=== PATIENT | male | born 1955 | race African-American/Black ===

== ENCOUNTER 2016-08-06 09:20 | Inpatient (IN) | payer MEDICARE ==
[2016-08-06 10:24] VITALS: BP 139/91
--- NOTE | 2016-08-06 12:54 | History & Physical ---
IDENTIFYING INFORMATION: The patient is a 60-year-old male. CHIEF COMPLAINT: The patient was admitted on a hold for gait disability and danger to self. HISTORY OF PRESENT ILLNESS: The patient was sent from [facility]. He is homeless. He was not on any medication. He presented very disorganized in thought and speech. He stated he wanted to see a psychiatrist. He said he wanted to ____ to stop. He was paranoid. He believes that they are after me. He had suicidal ideation. He said I want to . He is delusional, expansive, having auditory and visual hallucinations, unable to contract for safety. When I talked to the patient, he was a poor historian. He thought he was 60 years of age. When asked about the reason for him to be here, he was unable to tell me. He said he went into [facility]; however, he was unable to elaborate. He reports that he sleeps well, eats well. He has been homeless, but he believes he was living in a board and care. He was unable to tell me what medication he was on. He was a very poor historian. PAST PSYCHIATRIC HISTORY: He has been treated by psychiatrist before. He has been hospitalized before. Unable to give me more details. He reports he was diagnosed with schizophrenia. MEDICAL HISTORY: Deferred to the medical doctor. ALLERGIES: He has no known drug allergies. He reports he is not sure what medications he is on. FAMILY AND SOCIAL HISTORY: The patient states he has a common-law since 1990. When asked about his children, he said he has 3, 4, 5, 6 or 7 children, not sure. He said he has college education. 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 He denies substance abuse problem. Later he changed his mind and says he may have used some, but he was unable to elaborate. MENTAL STATUS EXAMINATION: The patient is appropriately dressed, not very groomed. He looked disheveled. He was in hospital gown. He was rambling, unable to participate in a meaningful conversation and give valid information. He was, however, able to tell me the date, where he is, but he is unable to tell me his age, how many children he has. He apparently was reporting auditory and visual hallucinations that he wanted to and wanted to harm himself. He was paranoid. He feels that they are after him. He seems to have average intelligence. His long-term memory is poor, cannot remember his age. Short term memory is poor. He is not sure of the events that led to him coming here because of his psychosis. He has been responding to internal stimuli. His insight about his illness is poor. Judgment is poor with his behavior. IMPRESSION: AXIS I: Chronic paranoid schizophrenia with acute exacerbation. MEDICAL DIAGNOSIS: Deferred to Dr. Agarwal. His assets, he is accepting treatment, negative poor coping skills. INITIAL TREATMENT PLAN: The patient will be started on Risperdal. We will do group therapy, milieu therapy, individual therapy. ESTIMATED LENGTH OF STAY: 3-7 days. DISCHARGE CRITERIA: Decreasing psychosis, agitation, no longer suicidal or paranoid. After discharge, outpatient treatment. [facility]# [id number]
--- NOTE | 2016-08-07 03:37 | Consultation ---
REFERRING PHYSICIAN: Dr. Rivera. REASON FOR CONSULTATION: Medical management. HISTORY OF PRESENT ILLNESS: This is a 60-year-old -[place] male with history of schizoaffective disorder, bipolar disorder, who was admitted with psych decompensation. The patient apparently showed up at a local ER with disorganized thoughts and speech with grandiose delusions and apparently he was admitting to hearing voices. The patient has been admitted to [facility] for further management and care. He is cooperative, but very confused and very tangential in his speech. Per records, there is a medical history significant for anemia, nicotine dependence, and a past UTI. PAST MEDICAL HISTORY: As noted above. He denies any medical history when I asked. PAST SURGICAL HISTORY: He had a nostril surgery in his early 20s. FAMILY HISTORY: He states that his mom had pancreatic cancer. SOCIAL HISTORY: He admits to tobacco, denies any ETOH. ALLERGIES: NKDA. OUTPATIENT MEDICATIONS: Depakote 250 b.i.d., Seroquel 150 t.i.d., and trazodone 50 at bedtime. REVIEW OF SYSTEMS: CONSTITUTIONAL: A great review of systems was unable to be done given the patient's condition, but he denies any recent fever, chills, or any recent ailments. CARDIOVASCULAR: No chest pain, palpitations. PULMONARY: Denies any cough or phlegm production. GASTROINTESTINAL: No bowel habit changes. GENITOURINARY: No bladder habit changes. PHYSICAL EXAMINATION: VITAL SIGNS: BP 139/91, pulse 78, respirations 20. He is afebrile. GENERAL: Well developed, well nourished, not in acute distress. HEAD AND NECK: Normocephalic, atraumatic. CARDIAC: Regular rate and rhythm without any murmurs. LUNGS: Decreased at the bases, but overall clear auscultation bilaterally. ABDOMEN: Soft, supple, nontender, nondistended, normoactive bowel sounds. EXTREMITIES: No edema in lower extremities. LABORATORY DATA: There were no labs available at this time. IMPRESSION: 1. Acute psych exacerbation. 2. History of schizoaffective disorder. 3. History of anemia. 4. History of nicotine dependence. PLAN: The patient has been admitted to the [facility] for further management and care. I will ask for basic labs including CBC, CMP, mag, TSH, UA, and lipid panel. I will follow the patient on a daily basis. JOB# [id number]
--- NOTE | 2016-08-07 08:13 | Diagnostic Imaging Report ---
Portable chest x-ray History: Cough Allowing for portable technique the heart size is normal. No focal pulmonary parenchymal processes. No hilar or mediastinal abnormalities. Impression: No acute abnormalities.
[2016-08-07 08:21] LABS: % BASOPHILS 2.3 % (0.0-2.0); % EOSINOPHILS 2.6 % (0.0-5.0); % MONOCYTES 4.9 % (2.0-10.0); % NEUTROPHILS 64.2 % (40.0-80.0); HEMATOCRIT 39.9 % (39.0-49.0); HEMOGLOBIN 13.2 gm/dL (13.2-17.3); MEAN CELL VOLUME 84.8 fl (80-99); MEAN CORPUSCULAR HEMOGLOBIN 28.1 pg (26.0-30.0); MEAN CORPUSCULAR HGB CONC 33.1 pg (28.0-36.0); MEAN PLATELET VOLUME 9.7 fl; NEUTROPHILE ABSOLUTE 5.9 Th/cmm (1.8-8.0); PLATELET COUNT 299 Th/cmm (150-400); WHITE BLOOD COUNT 9.1 Th/cmm (4.8-10.8)
[2016-08-07 08:35] LABS: ANION GAP 4.8 (7.0-16.0); BUN - UREA NITROGEN 21 mg/dL (7-25); BUN/CREATININE RATIO 23.3; CALCIUM SERUM 9.6 mg/dL (8.6-10.3); CARBON DIOXIDE 28.9 mEq/L (21.0-31.0); CHLORIDE 106 mEq/L (98-107); CREATININE - SERUM 0.9 mg/dL (0.7-1.3); GLUCOSE 96 mg/dL (70-105); POTASSIUM SERUM 4.7 mEq/L (3.5-5.1); SODIUM SERUM 135 mEq/L (136-145)
[2016-08-07 08:36] LABS: CHOLESTEROL 144 mg/dL (<200); TRIGLYCERIDES 67 mg/dL (<150)
[2016-08-07] MEDS ORDERED: Haloperidol Lactate 5 mg/mL 1mL Vial IM STA (12:20)
[2016-08-07] MEDS ORDERED: Haloperidol Lactate 5 mg/mL 1mL Vial ONE (12:29)
--- NOTE | 2016-08-07 22:07 | Progress Notes ---
Covering for Dr. Rivera. Case was discussed with staff of the patient. The patient believes some staff is trying to harm him and some people are trying to hurt him. He continues to look disheveled, disorganized, and internally preoccupied. I did initiate him on Risperdal 0.5 mg twice a day with benztropine 0.5 mg twice a day as needed with no side effects, no sedation, and no nausea. Not sure if he needs placement; however, we will have the staff look into it and so far, we will continue to work with the patient in group therapy, milieu therapy, and adjust the medication as needed. JOB# [id number]
--- NOTE | 2016-08-09 06:06 | Progress Notes ---
Case was discussed with staff of the patient, reviewed records. The patient continues to be psychotic, delusional. Continues to be unable to participate in a meaningful conversation, cannot formulate a safe plan for self-care. He is still looking disheveled, disorganized, and internally preoccupied. He is homeless, unpredictable, impulsive. He refused to take the medication that I prescribed to him and he has been on Risperdal 0.5 mg twice a day, so when I asked him about the reason why he does not take it, he said he does not like to take it, it makes him feel mean and thus he would take any other medication and I asked him if there was any other medication that he knows ____ he was unable to tell me, so I will be discontinuing Risperdal and I will be adding Zyprexa 5 mg at bedtime. The patient continues to have poor insight. Unable to make safe plan for self-care and discussed side effects with the medication. We will continue to work with the patient in group therapy, milieu therapy, and adjust the medication as needed. JOB# [id number]
[2016-08-09] MEDS: OLANZapine 10 mg Oral Disintegrating Tab PO SCH (21:00)
--- NOTE | 2016-08-10 05:29 | Progress Notes ---
SUBJECTIVE: Chart reviewed and the patient interviewed. Also discussed the patient's condition with the staff and reviewed records and labs. The patient is still actively hallucinating and is still actively responding to stimuli. The patient also is still talking to himself and mumbling with words difficult to understand. The patient also is still threatening others and still has disorganized thoughts. The patient also is still disheveled and personal hygiene is still poor. Also, still needs redirections, but he gets agitated when staff tries to redirect him. On the other hand, the patient continued to comply with taking his medications with no side effects of medications. The patient also still has dangerous situation and gets violent easily and has been slamming doors. ASSESSMENT: The patient is still psychotic and considered to be gravely disabled. TREATMENT PLAN: We will continue monitoring his behavior and his condition closely. Also, we will increase Zyprexa to 5 mg in the morning and 10 mg at bedtime and we will continue to follow up his condition closely. JOB# [id number]
[2016-08-10] MEDS: OLANZapine 10 mg Oral Disintegrating Tab PO SCH (20:31)
--- NOTE | 2016-08-11 05:51 | Progress Notes ---
SUBJECTIVE: Chart reviewed and the patient interviewed. Also discussed the patient's condition with the staff and reviewed records and labs. The patient is still actively hallucinating and is still actively responding to stimuli. The patient also continued to be angry and still threatening peers and others and he gets aggressive when staff tries to redirect her. The patient also is still slamming doors and he is still demanding. Also, during interview patient had disorganized thoughts. ASSESSMENT: The patient is still psychotic and can be dangerous to others. TREATMENT PLAN: Zyprexa was increased yesterday with no side effects. We will continue same dose. Also, we will continue working on his poor impulse control and we will continue to follow up. JOB# [id number]
[2016-08-11] MEDS: OLANZapine 10 mg Oral Disintegrating Tab PO SCH (20:43)
--- NOTE | 2016-08-12 01:03 | Progress Notes ---
SUBJECTIVE: Chart reviewed and the patient interviewed. Also, discussed the patient's condition with staff and reviewed records and labs. The patient is still extremely angry and agitated, and he is still actively responding to stimuli and talking to himself. The patient also is still suspicious and is still paranoid. The patient also still has difficulty with redirections and gets agitated when staff tries to help him with redirecting him. Also, during interview, the patient is disheveled and he is talking to himself. ASSESSMENT: The patient is still psychotic and agitated and can be dangerous to others. TREATMENT PLAN: We will continue monitoring his behavior and his condition closely. Also, continue to work on his irritability and his agitation. Also, Zyprexa was increased to 5 mg in the morning and continue monitoring and adjusting the dose. JOB# [id number]
[2016-08-12] MEDS: OLANZapine 10 mg Oral Disintegrating Tab PO SCH (20:33)
[2016-08-12] MEDS ORDERED: Magnesium Hydroxide (MOM) 30 mL UDC PO PRN (21:16)
--- NOTE | 2016-08-13 04:17 | Progress Notes ---
Covering for Dr. Rivera. SUBJECTIVE: Nursing staff reported the patient presents overnight labile, euphoric. Today on bapm-av-lakh evaluation, the patient presents very disorganized and delusional, unable to engage in linear conversation. MENTAL STATUS EXAMINATION: Disorganized, paranoid, and delusional. ASSESSMENT AND PLAN: The patient is a 60-year-old male with chronic paranoid type, unable to formulate a safe plan outside in a structured environment. We will continue with primary psychiatrist's treatment plan and goals, which include Zyprexa 5 in the morning and 10 at nighttime. JOB# [id number]
[2016-08-13] MEDS: Multivitamin Tab PO SCH (08:40)
[2016-08-13] MEDS: OLANZapine 10 mg Oral Disintegrating Tab PO SCH (20:44)
--- NOTE | 2016-08-14 02:55 | Progress Notes ---
SUBJECTIVE: The patient is seen. Chart reviewed. Discussed with staff. The patient with history of schizophrenia, disorganized, psychotic. The patient is rambling, making nonsensical statements. When I asked him why he is here, he states "I went to [address], I went to get a hotdog; I was a toddler." The patient states he is here because he is waiting for board and care, flight of ideas, pressured speech, but on a positive note he seems calm at this time. ASSESSMENT: The patient remains disorganized, paranoid, delusional, bizarre, nonsensical statements. PLAN: The patient is currently gravely disabled, cannot take care of his basic needs. We will continue to monitor closely and adjust medications. JOB# [id number]
[2016-08-14] MEDS: Multivitamin Tab PO SCH (09:54)
[2016-08-14] MEDS: OLANZapine 10 mg Oral Disintegrating Tab PO SCH (20:34)
--- NOTE | 2016-08-15 02:44 | Progress Notes ---
SUBJECTIVE: Chart reviewed and the patient interviewed. Also, discussed the patient's condition with the staff and reviewed records and labs. The patient is hyperactive and he is still agitated. The patient is also still slamming doors and he is still in angry and in irritable mood. The patient is also still threatening peers and staff and has difficulty following directions. Also, during the interview, the patient is hyper-talkative and he is severely anxious and angry. Also, noted to be talking to himself. On the other hand, the patient is compliant with taking his medications with no side effects of medications. ASSESSMENT: The patient is still psychotic. TREATMENT PLAN: We will continue to monitor his behavior and his condition closely. Also, continue adjusting psychotropic medications, and we will continue to follow up closely. JOB# [id number]
[2016-08-15] MEDS: Multivitamin Tab PO SCH (09:07)
[2016-08-15] MEDS ORDERED: OLANZapine 10 mg Oral Disintegrating Tab PO SCH (10:58)
[2016-08-15] MEDS: OLANZapine ODT 10 MG, OLANZapine ODT 5 MG PO SCH (20:18)
[2016-08-15] MEDS ORDERED: OLANZapine ODT 10 MG, OLANZapine ODT 5 MG PO SCH (21:00)
--- NOTE | 2016-08-16 04:39 | Progress Notes ---
SUBJECTIVE: Chart reviewed and the patient interviewed. Also discussed the patient's condition with the staff and reviewed records and labs. The patient is still actively responding to the stimuli and he is still easily agitated and in angry and in irritable mood. The patient also is still suspicious and paranoid. The patient also is still actively responding to the stimuli and talking to self. On the other hand, the patient is compliant with taking his medications with no side effects of medications. ASSESSMENT: The patient is still psychotic. TREATMENT PLAN: We will increase Zyprexa to 5 mg in the morning and 3 mg at bedtime. Also, continue to work on his irritability and anger and mood swings and poor impulse control. Also, work on discharge plans. JOB# [id number]
[2016-08-16] MEDS: Multivitamin Tab PO SCH (09:03)
[2016-08-16] MEDS: OLANZapine ODT 10 MG, OLANZapine ODT 5 MG PO SCH (21:13)
--- NOTE | 2016-08-17 02:34 | Progress Notes ---
SUBJECTIVE: Chart reviewed and the patient interviewed. Also discussed the patient's condition with the staff and reviewed records and labs. The patient continued to be extremely agitated and he is still in angry and in irritable mood. The patient was talking to somebody on the phone and then he slams phones and he gets agitated and angry with the nursing staff and started to threaten them when they were trying to redirect him. The patient also still has difficulty following directions and he is still restless. He also is still in angry mood and he is still unable to carry on ____ conversation. Otherwise, the patient is compliant with taking his medications. During interview, the patient is preoccupied and he is actively responding to the stimuli. Also, personal hygiene is still poor. Also thought processes are circumstantial and tangential with occasional flight of ideas. ASSESSMENT: The patient is still agitated and psychotic. TREATMENT PLAN: The patient continues to take Zyprexa in a total dose of 20 mg everyday, which is the maximum recommended dose. We will add Klonopin in a dose of 1 mg twice a day, hopefully to help with his agitation and irritability. Also, we will continue to work on his anger and his irritable mood and poor impulse control and we will continue to follow up. JOB# [id number]
[2016-08-17] MEDS: Multivitamin Tab PO SCH (08:42)
[2016-08-17] MEDS: OLANZapine ODT 10 MG, OLANZapine ODT 5 MG PO SCH (20:28)
--- NOTE | 2016-08-18 05:22 | Progress Notes ---
SUBJECTIVE: Chart reviewed and the patient interviewed. Also, discussed the patient's condition with the staff and reviewed records and labs. The patient continued to be extremely irritable and he is still easily agitated. The patient also is still pacing up and down the unit. The patient also is still intrusive to others. Also, during interview, the patient is hyperverbal and hypertalkative and disheveled. Otherwise, the patient is compliant with taking his medications and adding ____ help him to be less anxious and less irritable. ASSESSMENT: The patient is still psychotic and agitated. TREATMENT PLAN: We will continue monitoring his behavior and his condition closely. Also, we will continue to work on his irritability and his agitation and we will continue to follow up. Also, discussed with field nurse case managerrecruiter manager issue. JOB# [id number]
[2016-08-18] MEDS: Multivitamin Tab PO SCH (08:55)
[2016-08-18] MEDS: OLANZapine 10 mg Oral Disintegrating Tab PO SCH (20:34)
--- NOTE | 2016-08-19 06:57 | Progress Notes ---
SUBJECTIVE: Chart reviewed and the patient interviewed. Also, I discussed the patient's condition with the staff and reviewed records and labs. The patient continued to be intrusive and is still acting bizarre. The patient continued to shake my hand and to try to help me and hold me ____ tell him to stop, but the patient is restless and he is still psychotic. The patient also is still restless. Although, the patient ____ and anxiety level is still high. Also, his thought processes are circumstantial and tangential with flight of ideas. ASSESSMENT: The patient is still manic and psychotic. TREATMENT PLAN: We will continue monitoring his behavior and his condition closely. We will continue working on his irritability and anxiety and we will continue to follow up. JOB# [id number]
[2016-08-19] MEDS: Multivitamin Tab PO SCH (08:43)
[2016-08-19] MEDS: OLANZapine 10 mg Oral Disintegrating Tab PO SCH (20:38)
[2016-08-19] MEDS: Maalox 30 mL Cup PO PRN (21:02)
--- NOTE | 2016-08-20 02:15 | Progress Notes ---
SUBJECTIVE: The patient was seen, chart reviewed, and discussed with staff. The patient presented from [facility], [facility], stating that he wanted to . He is paranoid, delusional, and expansive. On [id number], the patient remains symptomatic, still paranoid, stating that he is going to go back to house. The patient remains irritable, easily agitated at times, pacing, intrusive, hyperverbal, pressured, saying things that really do not make sense. The patient noted to be taking his medications. No side effects. ASSESSMENT: The patient remains psychotic, grandiose, paranoid, easily agitated, irritable, and yelling at times. PLAN: We will continue to monitor his behaviors. Monitor closely for any irritability. Continue to manage medications to target his symptoms. JOB# [id number]
[2016-08-20] MEDS: Multivitamin Tab PO SCH (09:04)
[2016-08-20] MEDS: OLANZapine 10 mg Oral Disintegrating Tab PO SCH (20:39)
[2016-08-20] MEDS: Maalox 30 mL Cup PO PRN (20:53)
--- NOTE | 2016-08-20 23:32 | Progress Notes ---
SUBJECTIVE: The patient is seen, chart reviewed, discussed with staff. The patient is presenting from [facility], [facility], stating he want to , paranoid, delusional, ____ on [id number], the patient remains symptomatic, still paranoid, stating that he is going to go back to his house, irritable, easily agitated at times, still pressured, he is noted to be taking his medications, no side effects. ASSESSMENT: The patient remains psychotic, grandiose, still easily agitated, yelling at times, not safe for discharge. PLAN: Continue to monitor closely for any behavioral disturbances, no changes in behavior, continue to manage medications to target symptoms. The patient is to follow up with Dr. Rivera in the morning. JOB# [id number]
[2016-08-21] MEDS: Multivitamin Tab PO SCH (08:44)
[2016-08-21] MEDS: Maalox 30 mL Cup PO PRN (08:48)
[2016-08-21] MEDS: OLANZapine 10 mg Oral Disintegrating Tab PO SCH (20:31)
--- NOTE | 2016-08-21 22:28 | Progress Notes ---
DATE: 08/21/[address] Rivera. Case was discussed with staff of the patient, reviewed records. The patient continues to isolate himself. Continues to refuse medication. Continues to have poor insight about the whole situation. Unable to participate in a meaningful conversation or take care of himself. However, per the staff, probably maybe this is his basic level of functioning. No side effects with the medication, no sedation, no nausea. Recently, Dr. Rivera increased his olanzapine to 20 mg at bedtime. He takes 5 mg in the morning. He continues to be rambling and hyperverbal, continues to look disheveled, at times appears to be responding to internal stimuli, being increased olanzapine to 10 mg in the morning, continue the 20 mg at bedtime, and so far, no side effects, no sedation, no nausea, and no extrapyramidal symptoms. We will continue to work with the patient in group therapy, milieu therapy, and adjust medication as needed. JOB# [id number]
[2016-08-22] MEDS: Multivitamin Tab PO SCH (10:10)
[2016-08-22] MEDS: OLANZapine 10 mg Oral Disintegrating Tab PO SCH (20:30)
--- NOTE | 2016-08-22 23:30 | Progress Notes ---
DATE: 08/22/2016 Case was discussed with staff of the patient, reviewed records. The patient continues to be hyperverbal. He continues to look disheveled, internally preoccupied. Continues to have poor insight. Unable to make safe plan for his self-care. Sleeping well, eating well. No side effects with the medication, no sedation, no nausea, no extrapyramidal symptoms. I did increase his Zyprexa dose yesterday to 10 mg in the morning, 20 mg at bedtime and we will continue the patient in group therapy, milieu therapy, adjust the medication as needed. JOB# [id number]
[2016-08-23] MEDS: Multivitamin Tab PO SCH (10:13)
[2016-08-23] MEDS: OLANZapine 10 mg Oral Disintegrating Tab PO SCH (20:41)
--- NOTE | 2016-08-24 02:07 | Progress Notes ---
DATE: 08/23/2016 SUBJECTIVE: Case discussed with staff of the patient. The patient seems to be psychotic, rambling, hyperverbal. Continues to be unpredictable, impulsive, having poor insight, unable to make safe plan for self-care and currently preoccupied. He is compliant with the medication with no side effects, no sedation, no nausea and suspicious, rambling and is hard to understand. PLAN: I did increase his olanzapine on the 10th to 10 mg in the morning, needing more time to adjust and we will continue to work with the patient in group therapy, milieu therapy, adjust the medication as needed. JOB# [id number]
[2016-08-24] MEDS: Multivitamin Tab PO SCH (09:42)
[2016-08-24] MEDS: Maalox 30 mL Cup PO PRN (20:34)
[2016-08-24] MEDS: OLANZapine 10 mg Oral Disintegrating Tab PO SCH (20:34)
--- NOTE | 2016-08-25 01:57 | Progress Notes ---
DATE: 08/24/[address] Rivera. Case was discussed with staff of the patient, reviewed records. The patient continues to be unpredictable, continues to be rambling at times; however, he is easier to redirect. He is sleeping better and eating better. No side effects with the medication, no sedation, no nausea, and no extrapyramidal symptoms. His medication was adjusted Abilify, and we will continue to work with the patient in group therapy, milieu therapy, and adjust the medication as needed. JOB# [id number]
[2016-08-25] MEDS: Multivitamin Tab PO SCH (10:23)
[2016-08-25] MEDS: OLANZapine 10 mg Oral Disintegrating Tab PO SCH (20:51)
--- NOTE | 2016-08-26 05:10 | Progress Notes ---
DATE: 08/25/2016 Case was discussed with staff of the patient, reviewed records. The patient continues to be unpredictable, impulsive, needing redirection. Continues to have poor insight. He is paranoid. He believes that we are holding him in penitentiary here and that is illegal. He continues to have poor insight. He is intrusive and loud. He has been compliant with the medication with no side effects, no sedation, and no nausea. I will be introducing Depakote to his medication because of his agitation, acting out behavior, and paranoia. Discussed side effects and we will start him on Depakote 250 mg twice a day and no side effects with the medication, no sedation, and no nausea. He is currently on maximum dose of Zyprexa. I will continue to work with the patient in group therapy, milieu therapy, and adjust the medication .. JOB# [id number]
[2016-08-26] MEDS: Multivitamin Tab PO SCH (08:17)
[2016-08-26] MEDS: Magnesium Hydroxide (MOM) 30 mL UDC PO PRN (16:46)
[2016-08-26] MEDS: OLANZapine 10 mg Oral Disintegrating Tab PO SCH (20:31)
--- NOTE | 2016-08-26 23:52 | Progress Notes ---
DATE: 08/26/2016 Case discussed with staff of the patient. The patient continues to be loud, irritable, continues to have poor insight, unpredictable, impulsive, needing redirection, looking disheveled and paranoid. He is compliant with the medication with no side effects, no sedation and no nausea. I did initiate him on Depakote yesterday because of his mood swings and irritability and he is on a good dose of Zyprexa 10 mg in the morning, 20 mg at bedtime with no side effects, no sedation, no nausea and no extrapyramidal symptoms. We will continue to work with the patient in group therapy, milieu therapy and adjust the medication as needed. JOB# [id number]
[2016-08-27] MEDS: Multivitamin Tab PO SCH (09:27)
[2016-08-27] MEDS: Magnesium Hydroxide (MOM) 30 mL UDC PO PRN (09:48)
[2016-08-27] MEDS: OLANZapine 10 mg Oral Disintegrating Tab PO SCH (20:47)
--- NOTE | 2016-08-28 04:53 | Progress Notes ---
DATE: 08/27/2016 Case was discussed with staff of the patient. The patient continues to look disheveled, disorganized, internally preoccupied, very irritable and loud, continues to be paranoid. He believes that he has ____ place to go to and not going; however, the staff tells me that he had been unable to find own placement. He has been compliant with the medication with no side effects, no sedation, no nausea and I did add Depakote to his medication and so far no side effects and we will continue to work with the patient in group therapy, milieu therapy and adjust the medication as needed. JOB# [id number]
[2016-08-28] MEDS: Multivitamin Tab PO SCH (08:47)
[2016-08-28] MEDS: OLANZapine 10 mg Oral Disintegrating Tab PO SCH (21:00)
--- NOTE | 2016-08-29 07:26 | Progress Notes ---
DATE: 08/28/2016 Case was discussed with staff of the patient, reviewed records. The patient was very paranoid today. When I tried to talk to him, he was very irritable. He was telling me that the [facility] is going to find about me. He has been unpredictable, impulsive, needing redirection, easily agitated. He is on olanzapine 10 mg in the morning and 20 mg at bedtime. He is on Depakote 250 mg, he is on twice a day, I will be increasing the dose of Depakote because of his easily agitated behavior to 500 mg twice a day. The staff report he is compliant with the medications, but I wanted the staff to make sure he swallows his medication because it sounds like he is not taking it, that he is still labile, unpredictable, impulsive. No side effects with the medication, no sedation, no nausea, no extrapyramidal symptoms. I will continue to work with the patient in group therapy, milieu therapy, and adjust the medication as needed. JOB# [id number]
[2016-08-29] MEDS: Multivitamin Tab PO SCH (09:57)
[2016-08-29] MEDS: OLANZapine 10 mg Oral Disintegrating Tab PO SCH (20:48)
[2016-08-29] MEDS: Magnesium Hydroxide (MOM) 30 mL UDC PO PRN (21:19)
--- NOTE | 2016-08-30 05:53 | Progress Notes ---
DATE: 08/29/[address] Rivera. Case was discussed with staff of the patient, reviewed records. The patient continues to be loud, irritable, with very poor insight. He believes he cannot live____, the staff is still awaiting for placement for this patient and so far, it has been hard to find a placement for him. He has been compliant with the medication with no side effects, no sedation, no nausea, no extrapyramidal symptoms. I did increase Depakote dose yesterday with no side effects and we will continue to work, still at risk for discharge because of his agitated behavior and we will continue to work with the patient in group therapy, milieu therapy, adjust the medication as needed. JOB# [id number]
--- NOTE | 2016-08-30 07:53 | Progress Notes ---
DATE: 08/30/2016 SUBJECTIVE: Chart reviewed and the patient interviewed. Also discussed the patient's condition with the staff and reviewed records and labs. The patient is still paranoid and is still agitated. The patient also is still restless and he is still hyperverbal and hyper talkative. The patient also is still hussein and has severe mood swings. He also is still in angry mood. The patient also still needs lots of redirections. Otherwise, the patient is compliant with taking his medications with no side effects of medications. ASSESSMENT: The patient is still restless and is still in irritable mood. TREATMENT PLAN: We will continue to monitor his behavior and his condition closely. Also, we will increase Klonopin to 2 mg twice a day. Also, we will get a Depakote blood level and we will monitor Depakote blood level. The patient also is still taking Zyprexa in a dose of 10 mg in the morning and 20 mg at bedtime with no side effects. Although, Zyprexa is slightly higher than usual, yet it is not ____ in agitated patients like this case who is severely psychotic and agitated to give higher dose than recommended. Also, working with manager case in regard to discharge plans and in regard to placement issue and we will continue to follow up. JOB# [id number]
[2016-08-30] MEDS: Multivitamin Tab PO SCH (08:30)
[2016-08-30] MEDS: OLANZapine 10 mg Oral Disintegrating Tab PO SCH (21:09)
[2016-08-31] MEDS: Magnesium Hydroxide (MOM) 30 mL UDC PO PRN ×2 (03:04→21:24)
[2016-08-31] MEDS: Multivitamin Tab PO SCH (09:02)
[2016-08-31] MEDS: OLANZapine 10 mg Oral Disintegrating Tab PO SCH (20:15)
--- NOTE | 2016-09-01 04:00 | Progress Notes ---
DATE: 08/31/2016 SUBJECTIVE: Chart reviewed and the patient interviewed. Also, discussed the patient's condition with the staff and reviewed records and labs. The patient continued to be extremely paranoid and delusional. The patient told the staff that "the ____spirit coming off the three-way____." The patient also is still easily agitated and he is still in angry and in irritable mood at times. The patient also is still restless and also personal hygiene is still poor. Otherwise, the patient is compliant with taking his medications with no side effects of medications. The patient is rambling and disheveled. Also, still has disorganized thoughts. He also is still unable to provide safe plan for self-care. Also, thought processes with flight of ideas. ASSESSMENT: The patient is still psychotic and confused. TREATMENT PLAN: We will continue monitoring his behavior and his condition closely. Also, Depakote level will be done today. The patient also continued to take Zyprexa in a total of 30 mg every day and Klonopin was increased. We will continue adjusting psychotropic medications and we will continue to follow up closely. JOB# [id number]
[2016-09-01] MEDS: Multivitamin Tab PO SCH (08:51)
[2016-09-01] MEDS ORDERED: Haloperidol Lactate 5 mg/mL 1mL Vial IM ONE (10:18)
[2016-09-01] MEDS ORDERED: Haloperidol Lactate 5 mg/mL 1mL Vial ONE (10:19)
[2016-09-01] MEDS: OLANZapine 10 mg Oral Disintegrating Tab PO SCH (20:42)
--- NOTE | 2016-09-02 00:13 | Psychosocial Evaluation ---
DATE OF SERVICE: 09/01/2016 SUBJECTIVE: Chart reviewed and the patient interviewed. Also discussed the patient's condition with the staff and reviewed records and labs. The patient is still severely anxious and he is still severely suspicious and paranoid. The patient also is in angry and in irritable mood. He also is still intrusive to others and still has difficulty with following staff directions. The patient also is easily agitated. Otherwise, the patient is trying to follow directions and trying to comply with taking his medications with no side effects of medications. During interview, the patient is disheveled and he is still like touching people. He also is still rambling and thought processes are circumstantial with flight of ideas. ASSESSMENT: The patient is still psychotic and still can be dangerous to others with his agitation. TREATMENT PLAN: We will continue monitoring his behavior and his condition closely. Also, we will repeat Depakote blood level. Also, family independence case manager continued to work on placement issue and on discharge plans and we will continue to follow up. JOB# [id number]
[2016-09-02] MEDS: Multivitamin Tab PO SCH (08:41)
[2016-09-02] MEDS: OLANZapine 10 mg Oral Disintegrating Tab PO SCH (20:44)
--- NOTE | 2016-09-03 01:58 | Progress Notes ---
DATE: 09/02/[address] Rivera. Case was discussed with staff of the patient, reviewed records. The patient is a well known case to me. I have seen him before covering for Dr. Rivera. He is apparently awaiting placement. The patient has been agitated, irritable, and wants to go, argumentative, continues to need redirection. He is unpredictable, impulsive and he has been compliant with the medication with no side effects. Dr. Rivera added Klonopin 2 mg twice a day with no side effects, no sedation, and no nausea. I will continue to work with the patient in group therapy, milieu therapy, and adjust the medication as needed. JOB# [id number]
[2016-09-03] MEDS: Multivitamin Tab PO SCH (09:20)
[2016-09-03] MEDS: OLANZapine 10 mg Oral Disintegrating Tab PO SCH (20:14)
[2016-09-03] MEDS: Magnesium Hydroxide (MOM) 30 mL UDC PO PRN (21:12)
--- NOTE | 2016-09-04 04:37 | Progress Notes ---
DATE: 09/03/[address] Rivera. Case was discussed with staff of the patient, reviewed records. The patient continues to be irritable, anxious, continues to be easily agitated. He is sleeping better and eating better. He is compliant with the medication with no side effects, no sedation, no nausea, and no extrapyramidal symptoms. His Depakote level is 83.7, which is within acceptable therapeutic range. TSH within normal range. BUN and calcium within normal range. Lipid profile within normal range. Chemistry panel shows low sodium at 135 and the rest within normal range. CBC shows high basophil. The rest within normal range. We will continue to work with the patient in group therapy, milieu therapy, and adjust the medications as needed. JOB# [id number]
[2016-09-04] MEDS: Multivitamin Tab PO SCH (08:44)
[2016-09-04] MEDS: OLANZapine 10 mg Oral Disintegrating Tab PO SCH (20:49)
[2016-09-04] MEDS: Magnesium Hydroxide (MOM) 30 mL UDC PO PRN (21:10)
--- NOTE | 2016-09-05 03:51 | Progress Notes ---
DATE: 09/04/2016 Case was discussed with staff of the patient, reviewed records. The patient continues to do the same. Continues to be unpredictable, impulsive. He is sleeping better, eating better, probably this is his previous level of functioning. The staff tells me that [facility] may have accepted him, but they are checking his status regarding insurance and so far no side effects with the medication, no sedation, no nausea, no extrapyramidal symptoms. We will continue to work with the patient in group therapy, milieu therapy and adjust medication as needed. JOB# [id number]
[2016-09-05] MEDS: Multivitamin Tab PO SCH (09:01)
[2016-09-05] MEDS: OLANZapine 10 mg Oral Disintegrating Tab PO SCH (20:31)
[2016-09-05] MEDS: Magnesium Hydroxide (MOM) 30 mL UDC PO PRN (20:33)
--- NOTE | 2016-09-06 03:09 | Progress Notes ---
DATE: 09/05/[address] Rivera. Case was discussed with staff of the patient, reviewed records. The patient has been less loud, easier to redirect, less hyperverbal, a little bit more pleasant, easier to redirect, not as paranoid and threatening as he was a few days ago. We are working on placement for this patient. He has been compliant with the medication with no side effects, no sedation, no nausea and no side effects of the medications. We will continue to work with the patient in group therapy, milieu therapy, and adjust medications as needed. JOB# [id number]
[2016-09-06] MEDS: Multivitamin Tab PO SCH (09:31)
[2016-09-06] MEDS: OLANZapine 10 mg Oral Disintegrating Tab PO SCH (21:07)
[2016-09-06] MEDS: Magnesium Hydroxide (MOM) 30 mL UDC PO PRN (21:07)
--- NOTE | 2016-09-07 00:52 | Progress Notes ---
DATE: 09/06/2016 SUBJECTIVE: Chart reviewed and the patient interviewed. Also discussed the patient's condition with the staff and reviewed records and labs. The patient is still extremely paranoid and is still delusional. The patient also is still easily agitated and he is still having mood swings and in irritable mood. The patient also is still actively responding to the stimuli. Also, preoccupied with touching other people. Also, personal hygiene is still poor. ASSESSMENT: The patient is still psychotic and can be dangerous to others. TREATMENT PLAN: We will continue monitoring his behavior and his condition closely. Also, Depakote blood level came back to ____, which is within therapeutic level. No place accepting that accepted the patient yet and I discussed with supervisor case loadingbarber or beauty shop manager issue and is still waiting for 1 or 2 placements to give an answer to being accepted there or not. At the same time, we will continue monitoring his behavior and we will continue to follow up closely. JOB# [id number]
[2016-09-07] MEDS: Multivitamin Tab PO SCH (09:02)
--- NOTE | 2016-09-07 21:17 | Progress Notes ---
DATE: 09/07/2016 SUBJECTIVE: Chart reviewed and the patient interviewed. Also, discussed the patient's condition with the staff and reviewed records and labs. The patient remains extremely paranoid and in irritable mood. The patient also is still angry and he is still having severe mood swings. The patient also is still easily agitated and easily irritable. Also, is still intrusive to others. Personal hygiene is also poor. Also, during interview, the thought processes are circumstantial and tangential. ASSESSMENT: The patient is still psychotic and agitated and can be dangerous to others. TREATMENT PLAN: Continue to monitor his behavior and his condition closely. Also, family caseworker is still trying to find placement for the patient and so far no place accepted the patient. [facility] did not answer regarding accepting the patient or not yet. JOB# [id number]
[2016-09-07] MEDS: OLANZapine 10 mg Oral Disintegrating Tab PO SCH (21:21)
[2016-09-08] MEDS: Multivitamin Tab PO SCH (08:49)
[2016-09-08] MEDS: OLANZapine 10 mg Oral Disintegrating Tab PO SCH (21:30)
[2016-09-08] MEDS: Magnesium Hydroxide (MOM) 30 mL UDC PO PRN (21:30)
--- NOTE | 2016-09-09 01:26 | Progress Notes ---
DATE: 09/08/2016 SUBJECTIVE: Chart reviewed and the patient interviewed. Also discussed the patient's condition with the staff and reviewed records and labs. The patient continued to be easily agitated and paranoid. The patient also is still in irritable mood. The patient also is still disheveled. Also thought processes are still circumstantial and tangential, but no flight of ideas. The patient also still has periods of severe paranoia. During the interview, thought processes are circumstantial and tangential. Also, he is still restless and anxious and paranoid and agitated. ASSESSMENT: The patient is still psychotic, but showing some improvement. TREATMENT PLAN: Continue monitoring his behavior and his condition closely. We will also continue to work on discharge plans and no place accepted the patient yet and family service caseworker continue to work on placement issue. JOB# [id number]
[2016-09-09] MEDS: Multivitamin Tab PO SCH (08:38)
[2016-09-09] MEDS: OLANZapine 10 mg Oral Disintegrating Tab PO SCH (20:16)
--- NOTE | 2016-09-10 08:07 | Progress Notes ---
DATE: 09/09/[address] Rivera. SUBJECTIVE: The patient's nursing staff reported that the patient continues to be easily disorganized. Today on [id number]-[id number] evaluation, the patient to believe that there is a conspiracy against him and also the conspiracy against the doctor and he starts talking about the 1990s and changes topics and very easily distractable. MENTAL STATUS EXAMINATION: Continues to be very disorganized, disheveled, and paranoid. ASSESSMENT AND PLAN: The patient is 61-year-old male with a history consistent with schizophrenia, tolerating the current changes in adjustments of medications, which include being on Clonazepam 2 mg twice a day and Zyprexa 30 mg a day. We will continue monitoring and evaluating, working on his coping skills. JOB# [id number]
[2016-09-10] MEDS: Multivitamin Tab PO SCH (08:35)
[2016-09-10] MEDS: OLANZapine 10 mg Oral Disintegrating Tab PO SCH (20:51)
[2016-09-10] MEDS: Magnesium Hydroxide (MOM) 30 mL UDC PO PRN (20:57)
--- NOTE | 2016-09-10 23:08 | Progress Notes ---
DATE: 09/10/[address] Rivera. SUBJECTIVE: The patient was seen. The patient's chart reviewed. The patient's nursing staff reported that the patient continues to be easily verbally aggressive at times. He perseverates he is going to the home responding. Today on thjv-cd-cddp evaluation, the patient is still noted to be easily preoccupied internally. MENTAL STATUS EXAMINATION: Preoccupied internally. No side effects of medications, poor insight, judgment and impulse control. ASSESSMENT AND PLAN: The patient is a 61-year-old male with a history of paranoid schizophrenia. Zyprexa. We will continue with the current medication regimen to target the patient's still residual psychotic symptoms that impaired his insight and judgment and impulse control. [facility]# [id number]
[2016-09-11] MEDS: Multivitamin Tab PO SCH (08:58)
[2016-09-11] MEDS: Magnesium Hydroxide (MOM) 30 mL UDC PO PRN (21:22)
[2016-09-11] MEDS: OLANZapine 10 mg Oral Disintegrating Tab PO SCH (21:22)
[2016-09-12] MEDS: Multivitamin Tab PO SCH (08:57)
--- NOTE | 2016-09-12 11:37 | Progress Notes ---
DATE: 09/11/2016 SUBJECTIVE: Chart reviewed and the patient interviewed. Also discussed the patient's condition with the staff and reviewed records and labs. The patient is still anxious, but his affect is brighter. The patient is easier to redirect. The patient also is interacting more with peers and with others. No side effects of medications. ASSESSMENT: The patient seems to be less psychotic. TREATMENT PLAN: Continue current medications and treatment. Also, case aide still has no success in finding place for the patient. We will continue current treatment and continue to work on trying to find placement for the patient and we will continue to follow up. JOB# [id number]
--- NOTE | 2016-09-12 12:21 | Progress Notes ---
DATE: 09/11/2016 SUBJECTIVE: Chart reviewed and the patient interviewed. Also discussed the patient's condition with the staff and reviewed records and labs. The patient's affect is brighter. The patient is easier to be redirected. The patient also is having problem with his mood, but not as much as before. The patient also is cooperative with his treatment and he has been compliant with taking his medications with no side effects of medications. ASSESSMENT: The patient is less psychotic. TREATMENT PLAN: Continue to monitor the patient's behavior and condition. Also, continue to work on his mood and we will continue to follow up. JOB# [id number]
[2016-09-12] MEDS: Magnesium Hydroxide (MOM) 30 mL UDC PO PRN (20:48)
[2016-09-12] MEDS: OLANZapine 10 mg Oral Disintegrating Tab PO SCH (20:48)
[2016-09-13] MEDS: Multivitamin Tab PO SCH (08:19)
[2016-09-13] MEDS: Magnesium Hydroxide (MOM) 30 mL UDC PO PRN ×2 (13:04→21:05)
--- NOTE | 2016-09-13 20:06 | Progress Notes ---
DATE: 09/12/2016 SUBJECTIVE: Chart reviewed and the patient interviewed. Also discussed the patient's condition with the staff and reviewed records and labs. The patient is still anxious and he is still in angry and irritable mood, but easier to redirect him. The patient insists that he wants to leave and to go to " my dad." java project manager was not able to find a place for him; and his father, it seems that he is not going to take him home and the patient has no specific plans for his discharge. He is still disheveled and personal hygiene is still poor. Also, during my interview today, the patient seemed to be more angry than the last few days, since he was still in the hospital and he is asking to leave, but at the same time, immigration case manager was not able to help in getting him a place to live. On the other hand, the patient continued to comply with taking his medications with no side effects of medications. ASSESSMENT: The patient is less psychotic, but angry. TREATMENT PLAN: We will continue to work with immigration case manager and try to find a place for the patient to live at as soon as possible. At the same time, we will continue to monitor his medications and continue to follow up closely. JOB# [id number]
[2016-09-13] MEDS: OLANZapine 10 mg Oral Disintegrating Tab PO SCH (21:11)
--- NOTE | 2016-09-14 04:25 | Progress Notes ---
DATE: 09/13/2016 SUBJECTIVE: Chart reviewed and the patient interviewed. Also discussed the patient's condition with the staff and reviewed records and labs. The patient still has episodes of agitation and irritability. The patient also is still anxious and is still disheveled and personal hygiene is still poor. Also, is interacting minimally with peers and with others. He also gets agitated easily, easier to redirect her to follow instructions. The patient also is still unable to provide any safe plan for self-care and for placement and he still insists that he can go today with his father. Otherwise, the patient is compliant with taking his medications with no side effects of medications. ASSESSMENT: The patient is less agitated and less psychotic, but he needs placement. TREATMENT PLAN: fountain manager is still working on trying to find placement for the patient. It seems that placement of the patient is kind of difficult with coverage of insurance. At the same time, we will continue to work with field nurse case manager in regard to placement issue and ____ discharge plan and we will continue to monitor his behavior. JOB# [id number]
[2016-09-14] MEDS: Multivitamin Tab PO SCH (09:51)
[2016-09-14] MEDS: OLANZapine 10 mg Oral Disintegrating Tab PO SCH (21:21)
[2016-09-15] MEDS: Multivitamin Tab PO SCH (08:32)
--- NOTE | 2016-09-15 08:47 | Progress Notes ---
DATE: 09/14/2016 SUBJECTIVE: Chart reviewed and the patient interviewed. Also discussed the patient's condition with the staff and reviewed records and labs. The patient is still anxious and is still upset because of staying in the hospital, but at the same time, no place accepting the patient. Also, he is still disheveled and is still rambling and is easily agitated. Also easier to redirect him. The patient is compliant with taking his medications with no side effects of medications. ASSESSMENT: The patient is still awaiting for placement and considered to be gravely disabled. TREATMENT PLAN: I discussed with nurse case manager as well as hospital data security administrator placement issue and is still nurse case manager was still [facility] and also other facilities for placement, but no place accept him yet. At the same time, we will continue close observation of his condition and we will continue to follow up. JOB# [id number]
[2016-09-15] MEDS: OLANZapine 10 mg Oral Disintegrating Tab PO SCH (20:27)
--- NOTE | 2016-09-16 01:53 | Progress Notes ---
DATE: 09/15/2016 SUBJECTIVE: Chart reviewed and the patient interviewed. Also discussed the patient's condition with the staff and reviewed records and labs. The patient is still anxious and he is still restless. The patient also is still in a depressed mood at times, but also he is agitated and angry for being in the hospital. The patient, on the other hand, continued to comply with taking his medications. Personal hygiene is still poor. The patient denies any side effect of medications. ASSESSMENT: The patient is less psychotic and it seems that . TREATMENT PLAN: Continue current medications. Also continue to work with nurse case manager in regard to discharge plans. Still she is unable to find a place for the patient, although she did fax the patient's information to different facilities, one of them accepted him so far, and some of them did not speak yet. We will continue to work on and will continue followup. JOB# [id number]
[2016-09-16] MEDS: Multivitamin Tab PO SCH (08:56)
[2016-09-16] MEDS: Magnesium Hydroxide (MOM) 30 mL UDC PO PRN (09:02)
[2016-09-16] MEDS: OLANZapine 10 mg Oral Disintegrating Tab PO SCH (20:51)
--- NOTE | 2016-09-17 00:27 | Progress Notes ---
DATE: 09/16/2016 SUBJECTIVE: The patient was seen, chart reviewed, and discussed with staff. The patient presented initially from [facility], [facility], stating that he wanted to . On initial presentation to the hospital, he was paranoid, delusional, expansive, irritable, hyperverbal, pressured, saying things that really did not make any sense. The patient under the care of Dr. Rivera. Dr. Rivera noting that the patient was remaining anxious, restless, depressed, angry at times, but he had been medication compliant, still with poor ADLs, requiring prompting, improvement noted. On [id number], the patient is refusing interview. Per staff, he has been calm, no events. ASSESSMENT: The patient's psychosis seems to be dissipating and resolving. We are working hard on disposition planning at this time as the patient does seem to be approaching stabilization, but he does remain irritable, refusing to talk to me for example this morning. JOB# [id number]
[2016-09-17] MEDS: Multivitamin Tab PO SCH (08:08)
[2016-09-17] MEDS: Magnesium Hydroxide (MOM) 30 mL UDC PO PRN (08:08)
[2016-09-17] MEDS: OLANZapine 10 mg Oral Disintegrating Tab PO SCH (20:50)
--- NOTE | 2016-09-17 23:39 | Progress Notes ---
DATE: 09/17/2016 SUBJECTIVE: The patient was seen, chart reviewed, and discussed with staff. The patient is currently in the hospital. We are awaiting placement, somewhat irritable at times, rather hyperverbal, mildly pressured, restless, wandering at times; however, he does seem to be improving, more engaged, calmer, currently gravely disabled, cannot take care of his basic needs. We are working hard on placement. ASSESSMENT: The patient does seem to be improving. No disposition plan has been confirmed. The patient cannot take care of his basic needs. We will coordinate care with social work. JOB# [id number]
[2016-09-18] MEDS: Multivitamin Tab PO SCH (08:18)
[2016-09-18] MEDS: Magnesium Hydroxide (MOM) 30 mL UDC PO PRN (08:21)
--- NOTE | 2016-09-19 23:33 | Discharge Summary ---
DATE OF DISCHARGE: 09/18/2016 FINAL DIAGNOSIS/PRIMARY DIAGNOSIS: Chronic paranoid schizophrenia with acute exacerbation. REASON FOR HOSPITALIZATION: The patient was admitted to the hospital because of increased agitation and irritability and increased paranoia. HOSPITAL COURSE: The patient continued to be extremely paranoid and agitated. The patient also was restless. He also was not able to follow any directions. The patient was actively psychotic. The patient also was disheveled and personal hygiene was poor. The patient was given Seroquel. He continued to be in angry and in irritable mood, and he was severely agitated. Gradually, the patient's affect was brighter. The patient was less agitated and less irritable. He also was interacting more with peers. He was still rambling and his thoughts were disorganized. The patient was discharged from the hospital, after placement was an issue, and finally caser successfully find a place for the patient. PHYSICAL EXAMINATION: Showing no acute medical problems. Blood workup also basically was within normal. AFTER-DISCHARGE PLANS: The patient was discharged from the hospital with plans for outpatient treatment and followup. EXPECTED OUTCOME AFTER DISCHARGE: Guarded, this patient continued to comply with taking his medications and follow up with his outpatient treatment plans. JOB# [id number]
== END 2016-09-18 20:00 | DRG 885 ==
LOC: GERO 09:20
PROVIDERS: ADMIT Psychiatry & Neurology Psychiatry; ATTEND Psychiatry & Neurology Psychiatry
DX: F20.0 Paranoid schizophrenia (principal); F29 Unspecified psychosis not due to a substance or known physiological condition; I10 Essential (primary) hypertension; F31.9 Bipolar disorder, unspecified; D64.9 Anemia, unspecified; F17.210 Nicotine dependence, cigarettes, uncomplicated; K59.00 Constipation, unspecified
CPT/HCPCS: 36415-UA; 71010-TC; 80048-TC; 80061-TC; 80164-TC; 84443-TC; 85025-TC; 90899; 93005; A4217; G0410; J1200; J1630; J2060; J7030; J7051; Z7610